=== PATIENT | female | born 1985 | race Caucasian/White ===

== ENCOUNTER 2023-12-06 13:09 | Emergency (ER) | payer OTHER ==
[~2023-12-06] VITALS: Ht 162.6 cm; Wt 79.8 kg
[2023-12-06 13:09] VITALS: PULSE 97; RESP 18; TEMP 98.2
[2023-12-06] MEDS ORDERED: Vancomycin IV 1 GM VIAL ONE (15:09)
[2023-12-06] MEDS ORDERED: Clindamycin INJ 300 MG/50 ML 50 ML IV ONE (15:10)
[2023-12-06] MEDS ORDERED: CLINDAMYCIN 600MG / 50ML 50 ML IV ONE (15:10)
[2023-12-06] MEDS ORDERED: SODIUM CHLORIDE 0.9% 250ML 250 ML ONE (15:13)
[2023-12-06] MEDS: SODIUM CHLORIDE 0.9% 1000ML 1,000 ML IV STA (15:15)
[2023-12-06] MEDS: KETOROLAC TROMETHAMINE 30 MG/ML VIAL IV STA (15:16)
[2023-12-06] MEDS: Clindamycin INJ 300 MG/50 ML 50 ML IV ONE (15:20)
[2023-12-06] MEDS: CLINDAMYCIN 600MG / 50ML 50 ML IV ONE (15:47)
[2023-12-06] MEDS: Vancomycin IV 1 GM in SODIUM CHLORIDE 0.9% 250ML 250 ML IV SCH (15:47)
[2023-12-06] MEDS: TRAMADOL HCL 50 MG TAB PO ONE (16:40)
[2023-12-06] MEDS ORDERED: DOXYCYCLINE HY100 MG PO (19:19)
[2023-12-06] MEDS ORDERED: CLINDAMYCIN HC300 MG PO (19:20)
[2023-12-06] MEDS ORDERED: FIORICET 50-301 EACH PO (19:22)
[2023-12-06 19:30] VITALS: BP 136/70; PULSE 97; RESP 18; TEMP 98.2; O2SAT 98
== END 2023-12-06 19:30 | disposition home or self-care (01) ==
LOC: FSED 13:21
DX: L03.116 Cellulitis of left lower limb (principal); L01.09 Other impetigo; R51.9 Headache, unspecified; F98.8 Other specified behavioral and emotional disorders with onset usually occurring in childhood and adolescence; F17.210 Nicotine dependence, cigarettes, uncomplicated
CPT/HCPCS: 80053; 85025; 99283; J1885; J3370; J7030; J7050